=== PATIENT | male | born 1955 | race Hispanic/Latino ===

== ENCOUNTER 2017-10-14 12:15 | Emergency (ER) | payer OTHER ==
[2017-10-14] MEDS ORDERED: KEPPRA 1,000 MG/NS 0.75% 100ML 1,000 MG/100 ML BAG IV ONE (12:39)
[2017-10-14 13:40] LABS: Basophils % (Auto) 0.4 % (0.0-1.8); Eosinophils # (Auto) 0.1 K/mm3 (0.0-0.4); Eosinophils % (Auto) 0.5 % (0.0-4.3); Hematocrit 41.5 % (35.5-45.6); Hemoglobin 14.2 gm/dl (11.8-15.2); Lymphocytes # (Auto) 1.2 K/mm3 (1.2-5.4); Lymphocytes % (Auto) 11.1 % (13.4-35.0); Mean Corpuscular HGB Conc 34 % (32-34); Mean Corpuscular Hemoglobin 31 pg (28-32); Mean Corpuscular Volume 92 fl (84-94); Monocytes # (Auto) 0.4 K/mm3 (0.0-0.8); Monocytes % (Auto) 4.1 % (0.0-7.3); Platelet Count 182 K/mm3 (140-440); Red Blood Count 4.54 M/mm3 (3.65-5.03)
[2017-10-14 14:02] LABS: BUN/Creatinine Ratio 12; Blood Urea Nitrogen 11 mg/dL (9-20); Calcium 9.5 mg/dL (8.4-10.2); Hemolysis Index 6
--- NOTE | 2017-10-14 14:29 | Emergency Department Report ---
ED Seizure HPI - General Chief Complaint: Seizure Stated Complaint: CHECK UP SEIZURES/CLEARANCE Time Seen by Provider: 10/14/17 12:34 Source: patient Mode of arrival: Ambulatory Limitations: No Limitations - History of Present Illness Initial Comments: This 62-year-old male who is presenting status post seizure earlier today. Patient seizure was on a flight. Patient instructed that he needs to come to the hospital to get medically cleared to be able to fly home to [place]. As the patient's second seizure ever. Patient is taking Keppra before but was taken off of it earlier this year. Patient does have a neurologist back home. Patient is alert and oriented 3 at this time feels back to his baseline. 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 Absent: respiratory distress, wheezes, rales, rhonchi, stridor - Cardiovascular Cardiovascular Exam: Present: regular rate, normal rhythm, normal heart sounds. Absent: systolic murmur, diastolic murmur, rubs, gallop - GI/Abdominal GI/Abdominal exam: Present: soft, normal bowel sounds. Absent: distended, tenderness, guarding, rebound - Rectal Rectal exam: Present: deferred - Extremities Exam Extremities exam: Present: normal inspection - Back Exam Back exam: Present: normal inspection - Neurological Exam Neurological exam: Present: alert, oriented X3 - Psychiatric Psychiatric exam: Present: normal affect, normal mood - Skin Skin exam: Present: warm, dry, intact, normal color. Absent: rash ED Course Vital Signs 10/14/17 12:20 Temperature 97.6 F Pulse Rate 57 L Respiratory 18 Rate Blood Pressure 121/83 O2 Sat by Pulse 98 Oximetry ED Medical Decision Making - Lab Data Result diagrams: 10/14/17 13:16 10/14/17 13:16 - Medical Decision Making Patient was loaded with Keppra. Patient remains seizure-free here and is medically cleared to fly and to be discharged. Critical care attestation.: If time is entered above; I have spent that time in minutes in the direct care of this critically ill patient, excluding procedure time. ED Disposition Clinical Impression: Seizure Disposition: DC-01 TO HOME OR SELFCARE Is pt being admited?: No Does the pt Need Aspirin: No Condition: Stable Instructions: Non-epileptic Seizures (ED) Additional Instructions: Note to airline provider: Patient is medically cleared to fly at this time. Referrals: PRIMARY CARE [Primary Care Provider] - 3-5 Days Time of Disposition: 14:29
[2017-10-14 14:47] VITALS: BP 135/76
== END 2017-10-14 14:45 | disposition home or self-care (01) ==
LOC: ED 12:15
DX: R56.9 Unspecified convulsions (principal); I48.91 Unspecified atrial fibrillation; Z96.652 Presence of left artificial knee joint; Z98.84 Bariatric surgery status
CPT/HCPCS: 36415; 80048; 85025; 96374; 99284; G0480; J1953; 80320